=== PATIENT | male | born 1965 | race Caucasian/White ===

== ENCOUNTER 2025-01-07 20:53 | Inpatient (IN) ==
[2025-01-07 21:26] LABS: Basophils%(Percent) Auto 0.7 (0.0-1.3); Eosinophils%(Percent) Auto 0.6 % (0.0-4.0); Granulocytes % - Auto 48.5 % (49.1-73.1); Hematocrit 32.2 % (41.3-50.1); Mean Corpuscular Volume 102.8 fl (81.9-96.5); Monocytes #(Absolute)- Auto 0.4 (0.2-0.8); Monocytes %(Percent)- Auto 8.8 % (4.5-10.7); Platelet Count 91 K/uL (142-355)
[2025-01-07] MEDS: LACTATED RINGER'S 1,000 ML IV ONE (21:37)
[2025-01-07] MEDS: ONDANSETRON HCL/PF 4 MG/2 ML VIAL IVP ONE (21:38)
[2025-01-07 21:39] LABS: Potassium 3.7 mmol/L (3.6-5.2)
[2025-01-07 23:52] LABS: Urine Appearance CLEAR (CLEAR); Urine Color YELLOW (STRAW/YELL.)
[2025-01-07 23:53] LABS: Urine Blood NEGATIVE (NEG - TRACE); Urine Urobilinogen Normal (NORMAL)
[2025-01-07] MEDS ORDERED: IBUPROFEN 800 MG TABLET PO PRN (23:55)
--- NOTE | 2025-01-08 00:02 | Emergency Department Note ---
HPI - Nausea/Vomiting/Diarrhea General Chief complaint: Nausea/Vomiting/Diarrhea Stated complaint: n&v, diarrhea Time Seen by Provider: 01/07/25 21:30 Source: patient Mode of arrival: ambulance Limitations comment: Patient stated he has had 6- 8 "tallboy's" beer History of Present Illness HPI Narrative: 59 yo male presents to the ED via EMS with c/o persistent nausea, vomiting, diarrhea "all day, like I can't count how many times I've shit today". Patient has also consumed a large amount of alcohol today stating he has had between 5-6 tallboy beers. Further states he suffers from "terrible hemorrhoids, so I don't know if that is what it is, or I'm just bleeding, but I've been wiping pure blood". He is supposedly scheduled for a GI scope in [place] in the near future. MD elicited complaint: Reports nausea, vomiting, diarrhea and abdominal pain Onset (ago): day(s) Description of vomiting: Reports watery Description of diarrhea: Reports blood, mucus and watery Associated nausea: Yes Associated abdominal pain: Yes Location of pain: Reports diffuse Radiation: Reports diffuse Pain consistency: Reports constant Severity: moderate-severe Quality: Reports cramping and stabbing Related Data Home Medications Medication Instructions Recorded Confirmed apixaban 5 mg tablet (Eliquis) 5 mg PO DIRECTED 07/2312/08/24 cyanocobalamin (vitamin B-12) 1,000 mcg IM MONTHLY 07/2312/08/24 1,000 mcg/mL injection solution lisinopril 10 mg tablet 10 mg PO DIRECTED 5 12/08/24 meclizine 12.5 mg tablet 12.5 mg PO DIRECTED PRN 0 12/08/24 12/08/24 dizziness Allergies Allergy/AdvReac Type Severity Reaction Status Date / Time No Known Drug Allergies Allergy Verified 01/07/25 21:17 Review of Systems Status of ROS 10 or more systems reviewed and unremark able except as noted in history and below Gastrointestinal Reports: abdominal pain, nausea, vomiting, diarrhea, painful bowel movements, rectal pain, rectal swelling, rectal itching, change in stool character, blood in stool and mucus in stool PFSH PFS Medical History Vertigo PUD (peptic ulcer disease) Hx of blood clots Depression HTN (hypertension) Surgical History History of abdominal surgery Social History Smoking status: current every day smoker Within the past year, how often did you have a drink containing alcohol: 4 or more times a week Non-prescribed substance use: denies use Problems where you live: no known problems Little interest or pleasure in doing things: not at all Feeling down, depressed, or hopeless: not at all Feel stressed/tense/nervous/anxious/difficulty sleeping: not at all Exam Exam: 59 yo well nourished but poorly hydrated male presents to the ED via EMS with a stated c/o persistent nausea, vomiting, diarrhea, and rectal pain/bleeding "all day". No acute cardiac or respiratory distress noted. Constitutional: normal general appearance, no apparent distress, no limitations and alert Vital Signs - 24 hr 01/07/25 21:09 Temperature 98.5 F Pulse Rate 76 Respiratory Rate 20 Blood Pressure 116/75 Pulse Oximetry 97 Oxygen Delivery Me thod Room Air HENMT: normocephalic, head/scalp atraumatic, hearing grossly normal bilaterall y and external ears normal Oral mucous membranes extremely dry Eyes: PERRL, EOMs intact bilaterally, conjunctivae normal, alignment normal a nd no nystagmus Neck/C-Spine: visual inspection normal, trachea midline, cervical spine nontender, cervical full ROM noted and supple Lymph: no lymphadenopathy noted Chest: inspection of chest normal Respiratory: breath sounds equal bilaterally, normal respiratory effort, clear to auscultation bilaterally, no wheezes, no rales, no retractions and no use of accessory muscles Cardiovascular: normal heart rate noted, regular rhythm noted, no rub and no murmur Bilateral lower extremity swelling with mild pitting 1+ Gastrointestinal: abdomen normal to inspection, abdomen soft to palpation, nontender to palpation, nondistended, no masses, no pulsatile mass, no ascites and no hernia hyperactive bowel sounds Genitourinary: no CVA tenderness Back/Pelvis: spine normal to inspection, no thoracic spine tenderness, no lumbar spine tenderness, thoracic spine ROM normal and lumbar spine ROM normal Extremities: normal to inspection, normal to palpation, no tenderness, full ROM, no joint enlargement and no deformity Neurology: no movement abnormality noted, deep tendon reflexes 2+ bilaterally, speech normal, no fasciculations noted and GCS normal Psychiatry: Mental Status Exam documented in the separate MSE Feel stressed/tense/nervous/anxious/difficulty sleeping: not at all Skin: skin color normal Course Course Hospital Course: Heplock labs xr ekg IV fluids IV medication admission Reevaluation(s) Reevaluation #1: Patient states his abdominal pain has improved and he has not had any nausea, vomiting, diarrhea or bloody stools since arriving in the ED setting. I have discussed the lab results with the patient and will finallize the examination/work up and decide on a plan of care that best suits the patient's needs and wishes. Time: 22:00 Reevaluation #2: After reviewing the patient's completed labs and having a tyrone discussion I have made the decision the patient will be best served by close observation requiring an admission and IV fluids, and lab redraw. Time: 23:30 Vital Signs Vital signs: Vital Signs Temperature 98.5 F 01/07/25 21:09 Pulse Rate 76 01/07/25 21:09 Respiratory Rate 20 01/07/25 21:09 Blood Pressure 116/75 01/07/25 21:09 Pulse Oximetry 97 01/07/25 21:09 Oxygen Delivery Method Room Air 01/07/25 21:09 Temperature 98.5 F 01/07/25 21:09 Pulse Rate 76 01/07/25 21:09 Respiratory Rate 20 01/07/25 21:09 Blood Pressure 116/75 01/07/25 21:09 Pulse Oximetry 97 01/07/25 21:09 Oxygen Delivery Method Room Air 01/07/25 21:09 Discharge Plan Discharge Patient Disposition: Admitted As Observation Condition: Stable Clinical Impression: Gastroenteritis, Anemia, Acute dehydration, Acute alcohol intoxication, Acute h yponatremia, Abnormal laboratory test Time of Disposition: 23:53
[2025-01-08 00:34] LABS: Amphetamine Screen Urine NEG. (NEGATIVE); Cannabinoid Screen Urine NEG. (NEGATIVE); Cocaine Screen Urine NEG. (NEGATIVE); Methadone Screen Urine NEG. (NEGATIVE); Opiate Screen Urine NEG. (NEGATIVE)
[2025-01-08] MEDS: 0.9 % SODIUM CHLORIDE 1000 ML 1,000 ML IV SCH (00:43)
[2025-01-08 05:13] LABS: Eosinophils#(Absolute)Auto 0.1 (0.0-0.3); Eosinophils%(Percent) Auto 2.4 % (0.0-4.0); Granulocytes % - Auto 41.8 % (49.1-73.1); Granulocytes#(Absolute)- Auto 1.5 (2.0-6.2); Hematocrit 30.9 % (41.3-50.1); Mean Corpuscular Volume 102.1 fl (81.9-96.5); Monocytes #(Absolute)- Auto 0.3 (0.2-0.8); Monocytes %(Percent)- Auto 8.2 % (4.5-10.7); Platelet Count 81 K/uL (142-355); White Blood Count 3.5 K/uL (3.7-9.6)
[2025-01-08 05:40] LABS: Potassium 3.8 mmol/L (3.6-5.2)
[2025-01-08] MEDS: APIXABAN 2.5 MG TABLET PO SCH (09:47)
[2025-01-08] MEDS: lisinopriL 10 MG TABLET PO SCH (09:47)
[2025-01-08] MEDS: PANTOPRAZOLE SODIUM 40 MG TABLET.DR PO SCH ×2 (09:47→20:28)
[2025-01-08] MEDS: MAGNESIUM OXIDE 400 MG TABLET PO ONE (09:53)
[2025-01-08] MEDS: MAGNESIUM SULFATE IV ONE ×3 (09:54→11:04)
[2025-01-08] MEDS: SODIUM CHLORIDE 0.9% IV ONE ×3 (09:54→11:04)
[2025-01-08] MEDS ORDERED: MECLIZINE HCL 25 MG TABLET PO PRN (10:00)
[2025-01-08] MEDS: ONDANSETRON HCL/PF 4 MG/2 ML VIAL INJ PRN (10:06)
--- NOTE | 2025-01-08 11:08 | History & Physical Report ---
H&P: HPI History of Present Illness Chief complaint: hyponatremia, anemia, rectal bleeding, acute dehyd Narrative: A 59 year old presented with 1 day of nausea and vomiting and frequent diarrhea and has been wiping blood today and has a history of hemorrhoids. Nothing to eat today although did drink 6-8 tallboys today although did vomiti them back up. Has had several episodes f diarrhea in the past and is scheduled for colonoscopy and was to go today to get it set up with the GI medicine. Denies suspicous foods, no fever, ill contacts. Review of Systems Status of ROS 10 or more systems reviewed and unremark able except as noted in history and below Constitutional Reports: change in weight, fatigue, malaise and night sweats; Denies: fever or chills Eyes Denies: change in vision, blurry vision or light sensitivity Ears, nose, mouth, and throat Reports: throat pain, bad breath and tinnitus; Denies: neck pain, throat swelling, difficulty swallowing, hoarseness, mouth pain or swelling of lips/tongue Cardiovascular Reports: swelling of feet/ankles and lightheadedness; Denies: chest pain, palpitations or edema Respiratory Denies: shortness of breath, cough, wheezing, stridor or pain on inspiration Gastrointestinal Reports: abdominal pain, nausea, vomiting, diarrhea, painful bowel movements, rectal pain, rectal swelling, rectal itching, change in stool character, blood in stool and mucus in stool; Denies: constipation Genitourinary Denies: painful urination, urinary frequency, urinary urgency or blood in urine Musculoskeletal Reports: back pain (chronic) and joint pain; Denies: neck pain, extremity pain or extremity swelling Integumentary/Breast Denies: rash, itching, redness or skin pain Neurological Reports: headache, numbness in extremities and vertigo (chronic); Denies: weakness in extremities, lack of coordination or confusion Psychiatric Reports: anxiety, mood swings, irritability and difficulty concentrating; Denies: panic attacks, change in sleep pattern, paranoia, memory loss, visual hallucinations, auditory hallucinations or tactile hallucinations Endocrine Reports: fatigue; Denies: excessive urination, excessive thirst, cold intolerance or excessive sweating Hematologic/Lymphatic Denies: easy bruising, easy bleeding or enlarged lymph nodes Allergic/Immunologic Denies: hives, throat swelling, tongue swelling, facial swelling, wheezing or itchy eyes [facility] Medical History (Updated 01/08/25 @ 11:06 by Shasha Rose DO) PUD (peptic ulcer disease) HTN (hypertension) Vertigo Hx of blood clots Depression Surgical History History of abdominal surgery Social History Smoking status: current every day smoker Within the past year, how often did you have a drink containing alcohol: 4 or more times a week Non-prescribed substance use: denies use Problems where you live: no known problems Highest level of school completed/degree received: GED or equivalent Little interest or pleasure in doing things: not at all Feeling down, depressed, or hopeless: not at all Feel stressed/tense/nervous/anxious/difficulty sleeping: not at all Gender Identity: male Meds Home Medications and Allergies Home Medications Medication Instructions Recorded Confirmed Type apixaban 5 mg tablet (Eliquis) 5 mg PO Q12H 12/08/24 0 01/08/25 History cyanocobalamin (vitamin B-12) 1,000 mcg IM MONTHLY 07/2301/08/25 History 1,000 mcg/mL injection solution lisinopril 10 mg tablet 10 mg PO DAILY 12/08/2412/28 History meclizine 12.5 mg tablet 12.5 mg PO BID PRN dizziness 12/08/24 01/08/25 History meloxicam 7.5 mg tablet 7.5 mg PO DAILY 01/08/2507/23 History trazodone 100 mg tablet 100 mg PO BEDTIME 01/08/25 0 01/08/25 History Allergies Allergy/AdvReac Type Severity Reaction Status Date / Time No Known Drug Allergies Allergy Verified 01/07/25 21:17 Exam Exam: 59 yo well nourished but poorly hydrated male presents to the ED via EMS with a stated c/o persistent nausea, vomiting, diarrhea, and rectal pain/bleeding "all day". No acute cardiac or respiratory distress noted. Constitutional: abnormal general appearance (disheveled), (chronically ill), (appears older than stated age) and (frail appearing), no apparent distress, average body habitus, limitations noted (intoxicated ETOH) (altered mental status) and alert Vital Signs - 24 hr 01/07/25 21:09 01/07/25 21:30 01/07/25 22:00 Temperature 98.5 F Pulse Rate 76 67 71 Pulse Rate [Right Radial] Respiratory Rate 20 19 20 Blood Pressure 116/75 110/72 123/69 Blood Pressure [Ri ght Arm] Pulse Oximetry 97 97 96 Oxygen Delivery Me thod Room Air Room Air Room Air 01/07/25 22:30 01/07/25 23:00 01/07/25 23:55 Temperature 97.9 F Pulse Rate 72 76 Pulse Rate [Right Radial] 59 L Respiratory Rate 20 18 19 Blood Pressure 114/70 106/68 Blood Pressure [Ri ght Arm] 124/77 Pulse Oximetry 95 95 95 Oxygen Delivery Me thod Room Air Room Air Room Air 01/08/25 00:35 01/08/25 00:40 01/08/25 00:40 Temperature 98.5 F 97.9 F Pulse Rate 71 Pulse Rate [Right Radial] 59 L Respiratory Rate 18 19 Blood Pressure 111/57 Blood Pressure [Ri ght Arm] 124/77 Pulse Oximetry 96 95 Oxygen Delivery [place] thod Room Air Room Air 01/08/25 03:43 01/08/25 08:00 01/08/25 09:47 Temperature 98.4 F 98.2 F Pulse Rate Pulse Rate [Right Radial] 65 71 Respiratory Rate 17 18 Blood Pressure 116/73 Blood Pressure [Ri ght Arm] 118/70 116/73 Pulse Oximetry 93 L 93 L Oxygen Delivery Me thod Room Air Room Air HENMT: normocephalic, head/scalp atraumatic, hearing grossly normal bilaterally, external ears normal, TMs abnormal, oral mucous membranes abnormal, dentition abnormal and gingiva abnormal Oral mucous membranes extremely dry Eyes: PERRL, EOMs intact bilaterally, conjunctivae normal, scleral icterus noted, papilledema noted, alignment normal, periorbital findings normal and no nystagmus Neck/C-Spine: abnormal to visual inspection, trachea midline, cervical spine nontender, abnormal cervical ROM noted, supple, no meningeal signs and thyroid normal Lymph: no lymphadenopathy noted and no lymphedema noted Chest: inspection of chest normal and palpation of chest normal Respiratory: breath sounds equal bilaterally, normal respiratory effort, clear to auscultation bilaterally, no wheezes, no rales, no retractions and no use of accessory muscles Cardiovascular: normal heart rate noted, regular rhythm noted, no rub and murmur noted (II/) Bilateral lower extremity swelling with mild pitting 1+ Gastrointestinal: abdomen normal to inspection, abdomen soft to palpation, nontender to palpation, nondistended, no masses, no pulsatile mass, no ascites and no hernia hyperactive bowel sounds Genitourinary: no CVA tenderness and bladder normal to palpation Back/Pelvis: spine abnormal to inspection, no thoracic spine tenderness, lumbar spine tenderness noted, thoracic spine ROM normal and lumbar spine ROM normal Extremities: abnormal to inspection, normal to palpation, no tenderness, full ROM, joint enlargement noted and no deformity 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, no movement abnormality noted, sensory deficit noted, deep tendon reflexes 2+ bilaterally, gait abnormality noted, speech n ormal, coordination normal, no fasciculations noted and GCS normal Psychiatry: Mental Status Exam documented within this Exam's Psych section mental status grossly normal, oriented x3, thought process abnormality noted, cooperative, affect normal, psychomotor activity normal and memory normal Feel stressed/tense/nervous/anxious/difficulty sleeping: not at all Skin: skin color abnormal Reports (pale), no rash, no lesions, ecchymosis noted, skin turgor abnormal, no jaundice, no petechiae, no mottling, nails abnormality noted and alopecia noted Assessment and Plan Assessment and Plan (1) Hyponatremia: Code(s): E87.1 - Hypo-osmolality and hyponatremia (2) Hypoglycemia: Code(s): E16.2 - Hypoglycemia, unspecified (3) Nausea vomiting and diarrhea: Code(s): R11.2 - Nausea with vomiting, unspecified; R19.7 - Diarrhea, unspecified (4) Acute dehydration: Code(s): E86.0 - Dehydration (5) Macrocytic anemia with vitamin B12 deficiency: Code(s): D51.8 - Other vitamin B12 deficiency anemias (6) Hypomagnesemia syndrome: Code(s): E83.42 - Hypomagnesemia (7) Hypoalbuminemia: Code(s): E88.09 - Other disorders of plasma-protein metabolism, not elsewhere classified (8) Alcohol abuse: Code(s): F10.10 - Alcohol abuse, uncomplicated (9) PUD (peptic ulcer disease): Code(s): K27.9 - Peptic ulcer, site unspecified, unspecified as acute or chronic, without hemorrhage or perforation (10) HTN (hypertension): Qualifiers: Hypertension type: primary hypertension Qualified Code(s): I10 - Essential (primary) hypertension Code(s): I10 - Essential (primary) hypertension Plan B12 and iron levels Cardiac monitoring CIWA protocol IV hydration started 100 mL/h sodium improved to 133 from 131 send increase to 125/h as patient had remained n.p.o. secondary to continuing nausea Stools are dark and loose guaiac was negative will do stool culture, stool O&P and C. difficile on his next stool Continue Zofran 4 mg IV every 4 hours as needed nausea vomiting Protonix 40 mg p.o. twice daily Starr diet as tolerated Albumin x 2 bags Continue Eliquis since guaiac was negative Strict I's and O's and daily weights Results Labs Labs: CBC 01/07/25 01/08/25 Range/Units 21:15 05:10 WBC 4.0 3.5 L (3.7-9.6) K/uL RBC 3.1 L 3.0 L (4.40-5.80) M/uL Hgb 10.9 L 10.5 L (14.0-17.4) gm/dL Hct 32.2 L 30.9 L (41.3-50.1) % Plt Count 91 L 81 L (142-355) K/uL Gran % 48.5 L 41.8 L (49.1-73.1) % Lymph % (Auto) 41.4 H 46.6 H (17.6-39.05) % [place] % (Auto) 8.8 8.2 (4.5-10.7) % Eos % (Auto) 0.6 2.4 (0.0-4.0) % Baso % (Auto) 0.7 1.0 (0.0-1.3) Lymph # (Auto) 1.7 1.6 (0.8-2.9) [place] # (Auto) 0.4 0.3 (0.2-0.8) Eos # (Auto) 0.0 0.1 (0.0-0.3) Baso # (Auto) 0.0 0.0 (0.0-0.1) Absolute Gran (auto) 2.0 1.5 L (2.0-6.2) CMP 01/07/25 01/08/25 21:15 05:10 Sodium 127 L 133 L Potassium 3.7 3.8 Chloride 94.0 L 102.0 Carbon Dioxide 24 26 BUN 4 L 3 L Creatinine 0.8 0.7 Glucose 66 L 65 L Calcium 7.5 L 7.2 L Liver Function 01/07/25 Range/Units 21:15 Total Bilirubin 0.50 (0.0-1.0) mg/dL AST 117 H (15-37) U/L ALT 51 (30-65) U/L Alkaline Phosphatase 143 H (50-136) U/L Albumin 2.1 L (3.4-5.0) g/dL Urine 01/07/25 23:20 Urine Color Yellow Urine Appearance Clear Ur Specific [place] 1.010 Urine Protein Negative Urine Glucose (UA) Normal Pulse Oximetry Attestation: I have reviewed the pertinent pulse oximetry results. ECG Attestation: I have reviewed the pertinent ECG results. Prior ECG tracings: available for review Imaging Imaging ordered: other (KUB) Attestation: I have reviewed the pertinent imaging results. Radiologist's impression: SINGLE FRONTAL VIEW X-RAY ABDOMEN HISTORY: Vomiting COMPARISON: None. FINDINGS: Bowel gas pattern is nonobstructive. There is no gross evidence of free air in the abdomen. There are no abnormal masses or calcification seen. The visualized bones demonstrates degenerative changes. IMPRESSION: 1. THE BOWEL GAS PATTERN IS NONOBSTRUCTIVE.
[2025-01-08] MEDS ORDERED: PANTOPRAZOLE SODIUM 40 MG TABLET.DR PO SCH (12:15)
[2025-01-08] MEDS: NICOTINE 21 MG/HR .TD24 TD SCH (20:28)
[2025-01-08] MEDS: LORazepam 1 MG TABLET PO ONE (22:35)
[2025-01-08] MEDS: MELATONIN 5 MG TABLET PO ONE (22:35)
[2025-01-09 05:42] LABS: Basophils%(Percent) Auto 0.5 (0.0-1.3); Eosinophils#(Absolute)Auto 0.1 (0.0-0.3); Eosinophils%(Percent) Auto 1.2 % (0.0-4.0); Granulocytes % - Auto 64.2 % (49.1-73.1); Granulocytes#(Absolute)- Auto 3.1 (2.0-6.2); Hematocrit 28.7 % (41.3-50.1); Mean Corpuscular Volume 101.7 fl (81.9-96.5); Monocytes #(Absolute)- Auto 0.3 (0.2-0.8); Monocytes %(Percent)- Auto 6.8 % (4.5-10.7); Platelet Count 79 K/uL (142-355); White Blood Count 4.8 K/uL (3.7-9.6)
[2025-01-09 06:10] LABS: Potassium 3.7 mmol/L (3.6-5.2)
--- NOTE | 2025-01-09 11:41 | Progress Note ---
Progress Note: Subjective Subjective Interval history: 59 year old male admitted for dehydration r/t several days of n/v/d. He states he had been seeing blood when he had bowel movements for some time and he has a history of hemorrhoids. He is a daily alcohol consumer. Consuming a 6 pack or pint daily. Last drink day he came in. Admitted and started on IVF, Albumin, Protonix, Zofran. Guaiac negative. Awaiting Stool c/s, O&P, cdiff. He is on Eliquis for DVT bilateral lower extremities and that was continued following the negative Guaiac. Today states he is feeling much better. Exam Exam: 59 yo well nourished but poorly hydrated male presents to the ED via EMS with a stated c/o persistent nausea, vomiting, diarrhea, and rectal pain/bleeding "all day". No acute cardiac or respiratory distress noted. Constitutional: abnormal general appearance (disheveled), (chronically ill), (appears older than stated age) and (frail appearing), no apparent distress, average body habitus, no limitations (intoxicated ETOH) and alert Vital Signs - 24 hr 01/08/25 12:00 01/08/25 16:00 01/08/25 20:00 Temperature 98.4 F 98.1 F 96.8 F L Pulse Rate [Right Radial] 63 64 65 Respiratory Rate 20 19 18 Blood Pressure [Ri ght Arm] 121/79 118/78 103/65 Pulse Oximetry 96 95 96 Oxygen Delivery Me thod Room Air Room Air Room Air 01/08/25 20:00 01/08/25 23:59 01/09/25 00:00 Temperature 98.2 F 98.6 F 98.6 F Pulse Rate [Right Radial] 65 80 80 Respiratory Rate 16 17 17 Blood Pressure [Ri ght Arm] 103/67 116/59 116/59 Pulse Oximetry 96 96 96 Oxygen Delivery Me thod Room Air Room Air Room Air 01/09/25 03:51 01/09/25 07:59 Temperature 98.5 F 98.2 F Pulse Rate [Right Radial] 73 71 Respiratory Rate 18 19 Blood Pressure [Ri ght Arm] 95/64 92/49 Pulse Oximetry 93 L 93 L Oxygen Delivery Me thod Room Air Room Air HENMT: normocephalic, head/scalp atraumatic, hearing grossly normal bilaterally, external ears normal, oral mucous membranes normal, dentition abnormal and gingiva abnormal Oral mucous membranes extremely dry Eyes: PERRL, EOMs intact bilaterally, conjunctivae normal, scleral icterus noted, papilledema noted, alignment normal, periorbital findings normal and no nystagmus Neck/C-Spine: visual inspection normal, trachea midline, cervical spine nontender, abnormal cervical ROM noted, supple, no meningeal signs and thyroid normal Lymph: no lymphadenopathy noted and no lymphedema noted Chest: inspection of chest normal Respiratory: breath sounds equal bilaterally, normal respiratory effort, clear to auscultation bilaterally, no wheezes, no rales, no retractions and no use of accessory muscles Cardiovascular: normal heart rate noted, regular rhythm noted, no rub and murmur noted (II/) Gastrointestinal: abdomen normal to inspection, abdomen soft to palpation, nontender to palpation, nondistended, no masses, no pulsatile mass, no ascites and no hernia hyperactive bowel sounds Genitourinary: no CVA tenderness and bladder normal to palpation Back/Pelvis: spine normal to inspection, no thoracic spine tenderness, no lumbar spine tenderness, thoracic spine ROM normal and lumbar spine ROM normal Extremities: normal to inspection, normal to palpation, no tenderness, full RO M, no joint enlargement and no deformity 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80) M/uL Hgb 9.8 L (14.0-17.4) gm/dL Hct 28.7 L (41.3-50.1) % Plt Count 79 L (142-355) K/uL Gran % 64.2 (49.1-73.1) % Lymph % (Auto) 27.3 (17.6-39.05) % [place] % (Auto) 6.8 (4.5-10.7) % Eos % (Auto) 1.2 (0.0-4.0) % Baso % (Auto) 0.5 (0.0-1.3) Lymph # (Auto) 1.3 (0.8-2.9) [place] # (Auto) 0.3 (0.2-0.8) Eos # (Auto) 0.1 (0.0-0.3) Baso # (Auto) 0.0 (0.0-0.1) Absolute Gran (auto) 3.1 (2.0-6.2) CMP 01/09/25 05:40 Sodium 134 L Potassium 3.7 Chloride 105.0 Carbon Dioxide 26 BUN 4 L Creatinine 0.8 Glucose 86 Calcium 7.2 L Liver Function 01/09/25 Range/Units 05:40 Total Bilirubin 0.55 (0.0-1.0) mg/dL AST 58 H (15-37) U/L ALT 31 (30-65) U/L Alkaline Phosphatase 118 (50-136) U/L Albumin 1.7 L (3.4-5.0) g/dL Urine 01/07/25 23:20 Urine Color Yellow Urine Appearance Clear Ur Specific [place] 1.010 Urine Protein Negative Urine Glucose (UA) Normal Progress Note: A&P Assessment and Plan (1) Hyponatremia: (2) Hypoglycemia: (3) Nausea vomiting and diarrhea: (4) Acute dehydration: (5) Macrocytic anemia with vitamin B12 deficiency: (6) Hypomagnesemia syndrome: (7) Hypoalbuminemia: (8) Alcohol abuse: (9) PUD (peptic ulcer disease): (10) HTN (hypertension): Qualifiers: Hypertension type: primary hypertension Qualified Code(s): I10 - Essential (primary) hypertension Plan B12 and iron levels Cardiac monitoring WA protocol IV hydration started 100 mL/h sodium improved to 133 from 131 send increase to 125/h as patient had remained n.p.o. secondary to continuing nausea Pending stool culture, stool O&P and C. difficile on his next stool Continue Zofran 4 mg IV every 4 hours as needed nausea vomiting Protonix 40 mg p.o. twice daily Advance diet as tolerated Albumin Continue Eliquis since guaiac was negative Strict I's and O's and daily weights Fall Risk Details Kraft Fall Scale Risk Level: Moderate Fall Risk Current Medications: Current Medications Acetaminophen (Acetaminophen 500 Mg Tablet) 500 mg PO Q6H PRN PRN Reason: Fever OF 100.5 OR GREATER Apixaban (Apixaban 2.5 Mg Tablet) 5 mg PO BID [facility] Last Admin: 01/09/25 08:18 Dose: 5 mg Cyanocobalamin (Cyanocobalamin (Vitamin B-12) 1,000 Mcg/Ml Vial) 1,000 mcg INJ MONTHLY [facility] Sodium Chloride (Sodium Chloride) 1,000 mls @ 125 mls/hr IV CONT [facility] Last Admin: 01/09/25 08:19 Dose: 125 mls/hr Albumin Human (Albumin Human 25%) 100 mls @ 60 mls/hr IV ONCE ONE Stop: 01/09/25 12:39 Lisinopril (Lisinopril 10 Mg Tablet) 10 mg PO DAILY [facility] Last Admin: 01/09/25 08:18 Dose: Not Given Meclizine HCl (Meclizine Hcl 25 Mg Tablet) 12.5 mg PO BID PRN PRN Reason: Vertigo Nicotine (Nicotine 21 Mg/Hr .Td24) 1 each TD DAILY [facility] Last Admin: 01/09/25 08:18 Dose: 1 each Ondansetron HCl (Ondansetron Hcl/Pf 4 Mg/2 Ml Vial) 4 mg INJ Q6H PRN PRN Reason: Nausea And Vomiting Last Admin: 01/08/25 10:06 Dose: 4 mg Pantoprazole Sodium (Pantoprazole Sodium 40 Mg Tablet.) 40 mg PO BID [facility] Last Admin: 01/09/25 08:18 Dose: 40 mg Time Spent With Patient Time: Total time spent is greater than 50% in coordination of care (as documented) at patient's floor/unit and/or counseling patient: 40
[2025-01-09] MEDS: ALBUMIN HUMAN 25% 100 ML IV ONE (12:26)
[2025-01-09] MEDS: ACETAMINOPHEN 500 MG TABLET PO PRN (18:34)
[2025-01-09] MEDS: LORazepam 1 MG TABLET PO PRN (20:48)
[2025-01-10 07:46] VITALS: BP 120/79; PULSE 72; RESP 19; TEMP 98.4
[2025-01-10 08:49] LABS: Basophils%(Percent) Auto 0.4 (0.0-1.3); Eosinophils%(Percent) Auto 0.7 % (0.0-4.0); Granulocytes % - Auto 63.9 % (49.1-73.1); Granulocytes#(Absolute)- Auto 3.1 (2.0-6.2); Hematocrit 29.1 % (41.3-50.1); Mean Corpuscular Volume 102.7 fl (81.9-96.5); Monocytes #(Absolute)- Auto 0.4 (0.2-0.8); Monocytes %(Percent)- Auto 8.3 % (4.5-10.7); Platelet Count 73 K/uL (142-355); White Blood Count 4.8 K/uL (3.7-9.6)
[2025-01-10 08:56] LABS: Potassium 3.9 mmol/L (3.6-5.2)
--- NOTE | 2025-01-10 09:52 | Discharge Summary ---
DS: Providers Provider Date of admission: 01/07/25 23:55 Primary care physician: Cathie Peter Attending physician on discharge: Johanna Ortiz Discharging clinician: Johanna Ortiz Anticipated date of discharge: 01/10/25 DS: Diagnosis Discharge Diagnosis (1) Hyponatremia: (2) Hypoglycemia: (3) Nausea vomiting and diarrhea: (4) Acute dehydration: (5) Macrocytic anemia with vitamin B12 deficiency: (6) Hypomagnesemia syndrome: (7) Hypoalbuminemia: (8) Alcohol abuse: (9) PUD (peptic ulcer disease): (10) HTN (hypertension): Qualifiers: Hypertension type: primary hypertension Qualified Code(s): I10 - Essential (primary) hypertension Plan Discharge home. Keep follow up appointment on Sunday with [facility] in [place] at 11:30 as scheduled. Schedule colonoscopy as already planned. DS: Summary Hospital Course Hospital Course: Patient admitted with acute dehydration following several days of n/v/d. Had seen blood from bowel and has history of hemorrhoids. He has been trying to schedule [facility] with [facility] in [place], [place]. He has follow up appointment Sunday the in [place] with PCP. Status at Discharge Functional status at discharge: independent ambulation Overall status at discharge: patient is back to baseline Time Spent with Patient Time attestation: Total time spent providing and/or coordinating discharge services:45 Exam Exam: 59 yo well nourished but poorly hydrated male presents to the ED via EMS with a stated c/o persistent nausea, vomiting, diarrhea, and rectal pain/bleeding "all day". No acute cardiac or respiratory distress noted. Constitutional: abnormal general appearance (disheveled), (chronically ill), (appears older than stated age) and (frail appearing), no apparent distress, average body habitus, no limitations (intoxicated ETOH) and alert Vital Signs - 24 hr 01/09/25 12:00 01/09/25 16:00 01/09/25 19:55 Temperature 98.7 F 98.6 F 100.2 F H Pulse Rate [Right Radial] 71 78 72 Respiratory Rate 19 19 19 Blood Pressure [Ri ght Arm] 112/66 122/77 128/65 Pulse Oximetry 96 95 95 Oxygen Delivery Me thod Room Air Room Air Room Air 01/09/25 23:00 01/10/25 03:00 01/10/25 07:00 Temperature 98.7 F 98.7 F 98.4 F Pulse Rate [Right Radial] 74 70 72 Respiratory Rate 18 17 19 Blood Pressure [Ri ght Arm] 122/83 123/81 120/79 Pulse Oximetry 93 L 94 L 92 L Oxygen Delivery Me thod Room Air Room Air Room Air HENMT: normocephalic, head/scalp atraumatic, hearing grossly normal bilaterally, external ears normal and oral mucous membranes normal Oral mucous membranes extremely dry Eyes: PERRL, EOMs intact bilaterally, conjunctivae normal and no scleral icterus Neck/C-Spine: visual inspection normal and trachea midline Lymph: no lymphadenopathy noted and no lymphedema noted Chest: inspection of chest normal Respiratory: breath sounds equal bilaterally, normal respiratory effort, clear to auscultation bilaterally, no wheezes, no rales, no retractions and no use of accessory muscles Cardiovascular: normal heart rate noted, regular rhythm noted, no gallop, no rub, no murmur, no JVD and peripheral pulses 2+ throughout Bilateral lower extremity swelling with mild pitting 1+ Gastrointestinal: abdomen normal to inspection, abdomen soft to palpation, nontender to palpation and nondistended hyperactive bowel sounds Genitourinary: no CVA tenderness and bladder normal to palpation Back/Pelvis: spine normal to inspection Extremities: normal to inspection, normal to palpation, no tenderness, full ROM, no joint enlargement and no deformity 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, no movement abnormality noted, no sensory deficits noted, deep tendon reflexes 2+ bilaterally, gait normal, speech normal, coordination normal and no fasciculations noted Psychiatry: mental status grossly normal, oriented x3, thought process normal, cooperative, affect normal, psychomotor activity normal and memory normal Skin: skin color normal, no rash, no lesions, no ecchymosis noted, skin turgor normal, no jaundice and no petechiae DS: Data Data Completed and Pending Labs on day of discharge: Labs from last 24 hours 01/10/25 01/09/25 08:24 11:07 WBC 4.8 RBC 2.8 L Hgb 10.0 L Hct 29.1 L MCV 102.7 H MCH 35.2 H MCHC 34.3 RDW 14.0 Plt Count 73 L MPV 9.3 Gran % 63.9 Lymph % (Auto) 26.7 [place] % (Auto) 8.3 Eos % (Auto) 0.7 Baso % (Auto) 0.4 Lymph # (Auto) 1.3 [place] # (Auto) 0.4 Eos # (Auto) 0.0 Baso # (Auto) 0.0 Absolute Gran (auto) 3.1 Sodium 136 Potassium 3.9 Chloride 103.0 Carbon Dioxide 26 Anion Gap 7.0 BUN 3 L Creatinine 0.7 Estimated GFR 106.8 Glucose 92 Calcium 7.3 L Total Bilirubin 0.72 AST 39 H ALT 28 L Alkaline Phosphatase 108 Total Protein 4.7 L Albumin 2.0 L Stool for White Cells Negative C. difficile Screen Negative C. difficile GDH Ag Negative Cryptosporidium/Giardia Negative Stl Cryptosporidium Ag Negative Preliminary micro results at discharge 01/09/25 11:07 Stool Culture - Preliminary Stool - Watery Discharge Plan Discharge Disposition: Home, Self-Care Condition: Stable Discharge Medications: Continued meclizine 12.5 mg tablet 12.5 mg PO BID PRN (Reason: dizziness) cyanocobalamin (vitamin B-12) 1,000 mcg/mL solution 1,000 mcg IM MONTHLY Patient Comments: INJECT 1 ML ONCE EVERY MONTH FOR 90 DAYS lisinopril 10 mg tablet 10 mg PO DAILY Eliquis 5 mg tablet 5 mg PO Q12H meloxicam 7.5 mg tablet 7.5 mg PO DAILY Patient Comments: TAKE 1 TABLET BY MOUTH ONCE DAILY FOR 30 DAYS trazodone 100 mg tablet 100 mg PO BEDTIME Patient Comments: TAKE 1 TABLET BY MOUTH EVERY DAY AT BEDTIME Discharge Orders: Discharge Order (Routine); Ordered 01/10/25 Ordered By: Johanna Ortiz Activity: increase activity as tolerated and resume usual activities as tolerated Diet: advance to your usual diet Plan of Treatment: Keep follow up Sunday with PCP as scheduled. Forms: Portal/Health Info Access Inst Follow-Ups: Cathie Peter [Other]
[2025-01-10] MEDS: ALBUMIN HUMAN 25% 100 ML IV SCH (10:21)
[2025-02-07] MEDS ORDERED: CYANOCOBALAMIN (VITAMIN B-12) 1,000 MCG/ML VIAL INJ SCH (09:00)
== END 2025-01-10 11:24 | disposition home or self-care (01) | DRG 641 ==
LOC: ED 20:53 → MS 20:53 → OBSVTOIN 23:55 → MS 01-08 00:35
PROVIDERS: ADMIT Nurse Practitioner Family; ATTEND Family Medicine
DX: R11.2 Nausea with vomiting, unspecified; K27.9 Peptic ulcer, site unspecified, unspecified as acute or chronic, without hemorrhage or perforation; Y90.5 Blood alcohol level of 100-119 mg/100 ml; D51.8 Other vitamin B12 deficiency anemias; E83.42 Hypomagnesemia; E16.2 Hypoglycemia, unspecified; E87.1 Hypo-osmolality and hyponatremia; F17.200 Nicotine dependence, unspecified, uncomplicated; F32.A Depression, unspecified; R19.7 Diarrhea, unspecified; F10.120 Alcohol abuse with intoxication, uncomplicated; E88.09 Other disorders of plasma-protein metabolism, not elsewhere classified; Z79.899 Other long term (current) drug therapy; Z79.1 Long term (current) use of non-steroidal anti-inflammatories (NSAID); Z86.718 Personal history of other venous thrombosis and embolism; E86.0 Dehydration; Z79.01 Long term (current) use of anticoagulants; I10 Essential (primary) hypertension